=== PATIENT | male | born 1950 | race Caucasian/White ===

== ENCOUNTER 2024-12-01 08:15 | Inpatient (IN) | payer MEDICARE, OTHER, SELFPAY ==
[2024-12-01] VITALS (9 sets, daily range): BP systolic 56–134; BP diastolic 38–75; PULSE 57–83; RESP 14–19; TEMP 36.3–36.6; O2SAT 95–100; BMI 25.7
[2024-12-01] MEDS: SODIUM CHLORIDE 0.9% 1000 ML 1,000 ML 999 ML IV (08:35)
--- NOTE | 2024-12-01 08:40 | EKG_ITS ---
[facility] (Formerly [facility]) Test Date: 2024-12-01 Pat Name: MARIANGEL MONTEMAYOR Department: Room: - Gender: Male Assistant Laboratory Director: : 1950 Requested By: Sherwin Owens Order Number: [id number] Reading MD: Sherwin Owens Measurements Intervals Hanna Rate: 62 P: 45 LA: 185 QRS: 53 QRSD: 93 T: 55 QT: 462 QTc: 472 Interpretive Statements SINUS RHYTHM PROLONGED QT INTERVAL Compared to ECG 04/07/2023 12:26:17 Prolonged QT interval now present /store/S0/[id number].pdf
--- NOTE | 2024-12-01 08:40 | XR_ITS ---
Examination: CT abdomen and pelvis without contrast. Coronal 3-D reconstructions. Sagittal 2-D reconstructions. Date and time of exam:December 01, [address] chest abdomen pelvis April 07, 2023 INDICATIONS: Generalized abdominal pain today CTDI: vol (mGy): 14.1 DLP: (mGycm): 805 Technique: Axial images of the abdomen have been obtained, 3 mm slice thickness Intravenous contrast material has not been administered. Low dose protocols were performed. One or more of the following dose reduction techniques were used; automated exposure control, adjustment of the mA and/or KV according to patient size, use of iterative reconstruction technique. Findings: Elevation left hemidiaphragm Retrocardiac gastric hernia No focal liver or splenic lesions Absent gallbladder No pancreatic mass Abdominal aorta normal size No renal or ureteral calculi, no hydronephrosis Air distended colon No pericecal inflammatory change Minimally fluid distended small bowel loops No bowel obstruction No diverticulitis Intact urinary bladder Transverse prostate dimension 35 mm Prominent osteopenia Moderate bilateral hip osteoarthritis IMPRESSION: No renal or ureteral calculi, no hydronephrosis Moderate colonic ileus Negative for bowel obstruction No diverticulitis Gallbladder is not diagnostically visualized, clinical correlation advised, consider hepatobiliary sonography follow-up
--- NOTE | 2024-12-01 08:41 | PD.EDRME ---
Rapid Medical Screening Exam RME Arrival date/time: 12/01/24 08:15 73-year-old male with a history of hypertension, intellectual disability, epilepsy, presents to the emergency room with a chief complaint of increased weakness, abdominal pain, nausea, vomiting, and a ground-level fall that occurred yesterday. I have greeted and performed a focused initial assessment of this patient. A comprehensive ED assessment and evaluation of the patient, analysis of all test results, and completion of the medical decision making process will be conducted by additional ED providers. Chief Complaint: Fall Time Seen by Provider: 12/01/24 08:19 Vital signs: Vital Signs Temperature 97.6 F 12/01/24 08:30 Pulse Rate 66 12/01/24 08:30 Respiratory Rate 17 12/01/24 08:30 Blood Pressure 68/48 L 12/01/24 08:30 Pulse Oximetry (%) 100 12/01/24 08:30 Oxygen Delivery Method Room Air 12/01/24 08:30 Vital signs reviewed by provider: Yes
[2024-12-01 09:12] LABS: Basophils # (Auto) 0.0 Thou/mm3 (0.0-0.2); Basophils % (Auto) 0 % (0-2.5); Eosinophils # (Auto) 0.0 Thou/mm3 (0.0-0.5); Eosinophils % (Auto) 0 % (0-10); Hematocrit 37.7 % (41.0-53.0); Hemoglobin 13.5 g/dL (13.5-16.0); Immature Granulocytes Auto 0.07 Thou/mm3 (0.00-0.00); Lymphocytes # (Auto) 0.9 Thou/mm3 (1.0-4.8); Lymphocytes % (Auto) 6 % (10-50); Mean Corpuscular HGB Conc 35.8 g/dl (31.0-37.0); Mean Corpuscular Hemoglobin 31.9 pg (25.0-35.0); Mean Corpuscular Volume 89 fL (80-100); Monocytes # (Auto) 0.8 Thou/mm3 (0.0-0.8); Monocytes % (Auto) 5 % (0-12); Neutrophils # (Auto) 13.4 Thou/mm3 (1.8-7.7); Neutrophils % (Auto) 88 % (37-80); Nucleated Red Blood Cell # 0.00 Thou/mm3 (0.00-0.00); Nucleated Red Blood Cell % 0 /100 WBC (0); Platelet Count 170 Thou/mm3 (140-440); RDW Standard Deviation 41.1 fL (35.1-43.9); Red Blood Count 4.23 Miln/mm3 (4.50-5.90); White Blood Count 15.2 Thou/mm3 (3.8-10.6)
--- NOTE | 2024-12-01 09:14 | XR_ITS ---
Examination: AP chest single view Technique one AP portable semiupright chest single view Date and time: December 01, 2024 0959 hours Comparison June 24, 2022 INDICATIONS: Hypotension nausea vomiting beginning 3 days ago. FINDINGS: Normal heart size Moderate elevation left hemidiaphragm Minor subsegmental atelectasis left base. No pneumonia or pulmonary edema Prominent osteopenia IMPRESSION: No pneumonia or pulmonary edema
[2024-12-01 09:30] LABS: INR 1.1 (0.9-1.3); Partial Thromboplastin Time 24.5 Seconds (22.0-36.0); Prothrombin Time 12.2 Seconds (9.0-12.2)
[2024-12-01 09:34] LABS: Lactate (Lactic Acid) 2.0 mMol/L (0.4-2.0)
[2024-12-01 09:38] LABS: Alanine Aminotransferase 255 U/L (10-49); Albumin, Serum 4.2 gm/dL (3.4-4.8); Albumin/Globulin Ratio 1.8 (1.2-2.2); Alkaline Phosphatase 83 U/L (46-116); Anion Gap 9 (7-16); BUN/Creatinine Ratio 14 Ratio (12-20); Bilirubin,Total 1.0 mg/dL (0.3-1.2); Blood Urea Nitrogen 23 mg/dL (9-23); Calcium 8.7 mg/dL (8.3-10.6); Calcium (Corrected) 8.7 mg/dL (8.5-10.1); Carbon Dioxide 26.7 mMol/L (20.0-31.0); Chloride 90 mMol/L (98-107); Creatinine (Component) 1.6 mg/dL (0.6-1.3); Estimated Creatinine Clearance 34.9 mL/min (>60); Globulin 2.4 gm/dL (2.3-3.5); Glucose 133 mg/dL (74-106); Lipase 44 U/L (12-53); Magnesium 2.0 mg/dL (1.6-2.6); Osmolality,Calculated 259 (275-295); Potassium 3.8 mMol/L (3.4-5.1); Sodium 126 mMol/L (136-145); Total Protein 6.6 gm/dL (5.7-8.2); Troponin I 0.026 ng/mL (0.0-0.045); eGFR 45 See Note
[2024-12-01 09:55] LABS: Aspartate Amino Transferase 1067 U/L (0-34)
--- NOTE | 2024-12-01 10:09 | PD.EDWEAK ---
ED Weakness RME/HPI General Chief complaint: Fall Stated complaint: Fall yesterday, lower back pain,poss UTI Time Seen by Provider: 12/01/24 08:19 Arrival date/time: 12/01/24 08:15 RME / HPI RME / HPI Narrative: 12/01/24 08:15 73-year-old male with a history of hypertension, intellectual disability, epilepsy, presents to the emergency room with a chief complaint of increased weakness, abdominal pain, nausea, vomiting, and a ground-level fall that occurred yesterday. I have greeted and performed a focused initial assessment of this patient. A comprehensive ED assessment and evaluation of the patient, analysis of all test results, and completion of the medical decision making process will be conducted by additional ED providers. DR. KING MAIN ED EVALUATION 73 year old male with history of intellectual disability, seizures, hypertension, hyperlipidemia presents to the ED for evaluation of weakness today. Sister reports at baseline the patient is able to walk without assistance and mostly independent in ADLs. However, noted beginning yesterday the patient is globally weak and unable to walk without assistance of walker. States yesterday, patient had a fall and was found lying supine on the floor. Believes patient had remained on on the floor for several hours. Sister additionally reports patient has had nausea, vomiting, diarrhea, night sweats, and urinary urgency. Sister denies fevers, cough, nasal congestion, or sick contacts. Sister mentioned patient was previously on 10mg Lisinopril and was decreased to 5mg daily. Baseline blood pressure 110s. Patient took medication this morning. Related Data Home Medications ?Medication ?Instructions ?Recorded ?Confirmed ergocalciferol (vitamin D2) 1,250 50,000 unit PO QDAY 09/28/23 12/01/24 mcg (50,000 unit) capsule ezetimibe 10 mg tablet 10 mg PO QDAY 09/28/23 12/01/24 phenobarbital 64.8 mg tablet 64.8 mg PO QDAY 09/28/23 12/01/24 lamotrigine 200 mg tablet 200 mg PO Q12H 12/01/24 12/01/24 lisinopril 5 mg tablet 5 mg PO QDAY 12/01/24 12/01/24 tamsulosin 0.4 mg capsule 0.4 mg PO QDAY 12/01/24 12/01/24 Previous Rx's ?Medication ?Instructions ?Recorded acetaminophen 325 mg tablet 650 mg (2 x 325 mg) PO Q6H PRN 06/24/22 (Tylenol) fever or pain #20 tabs Held on 09/28/23. Instructions: Resume on 09/29/23. may resume in 24hours Allergies Allergy/AdvReac Type Severity Reaction Status Date / Time No Known Allergies Allergy Verified 12/01/24 08:23 Review of Systems Review of Systems Systems Reviewed: All systems reviewed, normal except as documented Past Medical History Past Medical History NEUROLOGIC: Positive Neurological Disorders (INTELLECTUAL DISORDER), Seizures (last known seizure 10 years ago) and Epilepsy CARDIAC: Positive Cardiac Disorders, Hypercholesterolemia and Hypertension GASTROINTESTINAL: Positive Gastrointestinal Disorders (dysphagia) and Ulcer (bleeding ulcer) MUSCULOSKELETAL: Positive Arthritis Social History SMOKING STATUS: Never smoker ED Exam Narrative Physical exam: Constitutional: Awake, alert, nontoxic, elderly, frail HEENT: NC, AT, EOMI Neck: Supple CV: RRR, no m/r/g Lungs: CTAB, no w/r/r, no respiratory distress. Abd: Soft, NT, NT, no HSM noted to palpation Back: Appears well, no bruising noted, no swelling, no point tenderness, there is mild generalized tenderness to the entire back Extremities: No deformities, no edema noted; dull rubor to anterior aspect of knees with superficial abrasions Neuro: AAOx3, CN 2-12 GIBL, no acute neuro deficit noted. Skin: Warm, dry, intact Course Course Course Narrative: 1133h: Patient's labs reviewed, has significant abnormalities including white count of 15.2, AST 1067, ALT 255, sodium 126, creatinine 1.6, CPK 19,754. Given report from family that patient was found on the floor for possibly hours, concern for rhabdomyolysis. Was somewhat hypotensive on arrival with improvement with IV fluids. Will continue IV fluids, will discuss with hospitalist for admission. 1140h: Case was discussed with hospitalist team A. They will be down to evaluate patient for admission. Quality Measures none Orders Category Date Time Status Bedside COVID-19 Antigen Test NOW Care 12/01/24 08:40 Active Bedside Influenza A&B Antigen Test NOW Care 12/01/24 08:40 Completed COVID-19 Screening Questionnaire NOW Care 12/01/24 11:42 Active Decision to Admit X1 Care 12/01/24 11:42 Completed EKG (ED ONLY) *Do not use* NOW Care 12/01/24 08:[address] abdomen pelvis wo con Stat Exams 12/01/24 08:40 Completed EKG (ED Only) Stat Exams 12/01/24 08:40 Draft XR chest 1V portable Stat Exams 12/01/24 09:14 Completed B-Type Natriuretic Peptide Stat Lab 12/01/24 09:00 Completed CBC Stat Lab 12/01/24 09:00 Completed Comprehensive Metabolic Panel Stat Lab 12/01/24 09:00 Completed Creatine Kinase Stat Lab 12/01/24 09:28 Completed Lactate (Lactic Acid) Stat Lab 12/01/24 09:28 Completed Lipase Stat Lab 12/01/24 09:00 Completed Magnesium Stat Lab 12/01/24 09:00 Completed Partial Thromboplastin Time Stat Lab 12/01/24 09:00 Completed Prothrombin Time with INR Stat Lab 12/01/24 09:00 Completed Troponin I Stat Lab 12/01/24 09:00 Completed Urinalysis Stat Lab 12/01/24 13:50 Completed Acetaminophen Tab [Tylenol Tab] Med 12/01/24 11:38 Discontinued 975 mg PO X1 ONE Sodium Chloride 0.9% 1000 ml [Ns] 1,000 ml Med 12/01/24 11:39 Discontinued IV 500 mls/hr Sodium Chloride 0.9% 1000 ml [Ns] 1,000 ml Med 12/01/24 09:15 Discontinued IV 999 mls/hr Vital Signs Vital signs: Vital Signs Temperature 97.6 F 12/01/24 08:30 Pulse Rate 66 12/01/24 08:30 Respiratory Rate 17 12/01/24 08:30 Blood Pressure 68/48 L 12/01/24 08:30 Pulse Oximetry (%) 100 12/01/24 08:30 Oxygen Delivery Method Room Air 12/01/24 08:30 Pulse ox is 100% on room air which is adequate. Weakness MDM Narrative MDM Narrative:: Luciana Arora am scribing for and in the presence of Dr. King. Patient data External records reviewed:: [facility] previous records (I reviewed ED visit on 04/07/2023 ) Clinical information provided by:: family (sister provided history ) Social determinants that could affect healthcare access:: none Patient has the following chronic illnesses:: hypertension, hyperlipidemia, seizures, intellectual disability How is presenting disease/condition affected by chronic disease/condition?: exacerbated by Evaluation data The following diagnostics were reviewed and interpreted by me:: lab results, radiology exam(s) and EKG tracing(s) (12/01/2024 @ 09:04 AM. Sinus rhythm, rate 62, no STEMI. ) Lab and/or radiology exams considered but not ordered:: None Interpretation Summary: Ordering Physician: Sherwin James Date of Service: 12/01/24 Procedure(s): CT abdomen pelvis wo con Accession Number(s): [id number] cc: Sherwin JamesP; Kathi Jackson; Stephan Mcdonald MD~ Examination: CT abdomen and pelvis without contrast. Coronal 3-D reconstructions. Sagittal 2-D reconstructions. Date and time of exam:December 01, [address] chest abdomen pelvis April 07, 2023 INDICATIONS: Generalized abdominal pain today CTDI: vol (mGy): 14.1 DLP: (mGycm): 805 Technique: Axial images of the abdomen have been obtained, 3 mm slice thickness Intravenous contrast material has not been administered. Low dose protocols were performed. One or more of the following dose reduction techniques were used; automated exposure control, adjustment of the mA and/or KV according to patient size, use of iterative reconstruction technique. Findings: Elevation left hemidiaphragm Retrocardiac gastric hernia No focal liver or splenic lesions Absent gallbladder No pancreatic mass Abdominal aorta normal size No renal or ureteral calculi, no hydronephrosis Air distended colon No pericecal inflammatory change Minimally fluid distended small bowel loops No bowel obstruction No diverticulitis Intact urinary bladder Transverse prostate dimension 35 mm Prominent osteopenia Moderate bilateral hip osteoarthritis IMPRESSION: No renal or ureteral calculi, no hydronephrosis Moderate colonic ileus Negative for bowel obstruction No diverticulitis Gallbladder is not diagnostically visualized, clinical correlation advised, consider hepatobiliary sonography follow-up Dictated By: Stephan Mcdonald MD Signed By: <Electronically signed by Stephan Mcdonald MD in OV> 12/01/24 1129 Ordering Physician: Patty King MD Date of Service: 12/01/24 Procedure(s): XR chest 1V portable Accession Number(s): [id number] cc: Kathi Jackson MAJOR GIFTS MANAGER; Stephan Mcdonald MD; Patty King MD~ Examination: AP chest single view Technique one AP portable semiupright chest single view Date and time: December 01, 2024 0959 hours Comparison June 24, 2022 INDICATIONS: Hypotension nausea vomiting beginning 3 days ago. FINDINGS: Normal heart size Moderate elevation left hemidiaphragm Minor subsegmental atelectasis left base. No pneumonia or pulmonary edema Prominent osteopenia IMPRESSION: No pneumonia or pulmonary edema Dictated By: Stephan Mcdonald MD Signed By: <Electronically signed by Stephan Mcdonald MD in OV> 12/01/24 1028 Medications / Prescriptions Medications or Prescriptions considered but not ordered:: None Medication administrations:: Medication Administration History Acetaminophen (Acetaminophen 325 Mg Tablet) 650 mg PO Q6H PRN PRN Reason: Fever >100.4 Stop: 12/31/24 13:36 Acetaminophen (Acetaminophen 325 Mg Tablet) 650 mg PO Q6H PRN PRN Reason: PAIN SCALE 1-3 (mild Stop: 12/31/24 13:37 Heparin Sodium (Porcine) (Heparin Sod Inj 5000 Unit/Ml Vial) 5,000 unit SC Q8HR MONIKA Stop: 12/15/24 13:59 Last Admin: 12/01/24 15:12 Dose: 5,000 unit Documented By: DB Co-signed By: LF Sodium Chloride (Ns) 1,000 mls @ 200 mls/hr IV .Q5H MONIKA Stop: 12/31/24 15:30 Lamotrigine (Lamotrigine 100 Mg Tablet) 300 mg PO BID MONIKA Stop: 12/31/24 20:59 Lamotrigine (Lamotrigine 100 Mg Tablet) 200 mg PO WLUNCH MONIKA Stop: 01/01/25 11:59 Phenobarbital (Phenobarbital 32.4 Mg Tablet) 64.8 mg PO HS MONIKA Stop: 12/15/24 20:59 Discontinued Medications Acetaminophen (Acetaminophen 325 Mg Tablet) 975 mg PO X1 ONE Stop: 12/01/24 11:39 Last Admin: 12/01/24 13:01 Dose: 975 mg Documented By: AURORA Sodium Chloride (Ns) 1,000 mls @ 999 mls/hr IV .Q1H1M ONE Stop: 12/01/24 10:15 Last Infusion: 12/01/24 09:40 Dose: Infused Documented By: Admin: 12/01/24 08:35 Dose: 999 mls/hr Documented By: AURORA Sodium Chloride (Ns) 1,000 mls @ 500 mls/hr IV .Q2H ONE Stop: 12/01/24 13:38 Last Infusion: 12/01/24 15:16 Dose: Infused Documented By: Admin: 12/01/24 13:01 Dose: 500 mls/hr Documented By: AURORA Ondansetron HCl (Ondansetron Inj 2 Mg/Ml Inj 2 Ml) 4 mg IVP Q6H PRN; Protocol PRN Reason: NAUSEA OR VOMITING Stop: 12/31/24 13:36 See above Consultations Consultation(s) initiated? (list below): No Diagnosis Weakness Differential Diagnosis: anemia, hypoglycemia, hypothyroidism, rhabdomyolysis, sepsis and dehydration Most likely diagnosis given after review of the tests above:: rhabdomyolysis elevated LFTs fall hyponatremia Admission Indicated Admission indicated?: indicated Admission Request Was there a request for admission?: Yes Admission Attestation Admission request attestation: Discussed case with [] from Hospitalist service regarding admission. Discussed patients ED course, exam findings, labs, and radiology results. The Hospitalist [agrees,declines] to accept the patient for admission. Disposition Plan Disposition Plan: Admit Discharge Plan Plan Patient Disposition: Admit Acute Care w/in Hospital Problem List Clinical Impression: Rhabdomyolysis, Elevated LFTs, Fall, Hyponatremia
[2024-12-01 10:35] LABS: Creatine Kinase 19754 U/L (34-171)
[2024-12-01 11:06] LABS: B-Type Natriuretic Peptide < 20 pg/mL (0-100)
[2024-12-01] MEDS: SODIUM CHLORIDE 0.9% 1000 ML 1,000 ML 500 ML IV (13:01)
[2024-12-01] MEDS: ACETAMINOPHEN 325 MG TABLET 975 MG PO (13:01)
[2024-12-01 13:52] LABS: Collection Type, Urine Clean Catch
[2024-12-01 13:59] LABS: Bilirubin,Urine Negative (Negative); Blood,Urine 3+ (Negative); Clarity,Urine Turbid (Clear/Hazy); Glucose, Urine Negative (Negative); Ketones,Urine Negative (Negative); Leukocyte Esterase,Urine Negative (Negative); Nitrite,Urine Negative (Negative); PH,Urine 6.0 (5.0-7.0); Protein,Urine 2+ (Neg - Trace); RBC,Urine 1 /hpf (0-3); Specific Gravity,Urine 1.013 (1.001-1.035); Squamous Epithelial Cell,Urine < 1 /hpf (0-5); Urobilinogen,Urine Negative mg/dL (0.0-1.0); WBC,Urine 5 /hpf (0-5)
[2024-12-01 14:22] LABS: Color,Urine Orange (Lt Yel-Yel)
--- NOTE | 2024-12-01 14:31 | ESHP_ITS ---
<Statement entered by Al Griggs MD - 12/01/24 20:42> Patient was examined and case was reviewed with team including attending physician. Note reviewed, I agree with most of its contents and agree with the patient's care as documented by Dr. Beckett 73 yo M with PMHx of hypertension, epilepsy and intellectual disability who presented to the ED due to increased weakness, abdominal pain, nausea, vomiting. Patient had a ground level fall the day prior and was on the ground for long hours that day. Patient denies any loss of conciousness and he states he remembers the whole event, denies any head or facial trauma. He was too weak to get up from the floor and decided to take a nap while waiting for help. In the ED patient was found to have CK >61279 and was admitted for management for rhabdomyolysis. Patient was started on IVFs. Patient did endorse that he has been struggling to go to the restroom and he felt he was unable to empty his bladder, cassidy catheter placed as patient was found to have > 1000ml of urine in his bladder. Will continue with IV hydration and trend CK levels at this time Al Griggs MD PGY-2 Documentation for date of: 12/01/24 HPI History of Present Illness History of present illness: Kevan Whipple (Brad) is a 73 y/o male with PMH of epilepsy (on phenobarb and lamotrigine), intellectual disability (2/2 oxygen deprivation at ), and hypertension who presented to the ED 12/01 for weakness and fall. For the past few days patient noticed that he was not feeling well, had subjective fevers, malaise, myalgias, diarrhea. Denies melena, hematochezia. He had a mechanical fall one day ago after tripping over his dog, no prodrome, no LOC, + head strike. His sister found him after the fall, does not know how long he was on the ground but may have been several hours. He has lived with his sister for the past 13 years, but he does not have a conservatorship or designated medical decision maker. He is able to perform ADLs and has help with IADLs at baseline. Last seizure (grand mal) over 13 years ago ED course: Afebrile, HR 50s to 60s, systolic BP 50s to 100, diastolic 30s to 70s, appropriate SpO2 on room air. Leukocytosis with neutrophilic predominance and left shift. Hyponatremia 126, hypochloremia 90, creatinine 1.6, transaminitis with AST 1067, ALT 255. CK1 9754. Troponin negative, BNP WNL. UA negative for UTI, 2+ protein, 3+ blood, RBC WNL. CT A/P W/O showed moderate colonic ileus. Gallbladder not diagnostically visualized. Otherwise unremarkable. EKG showed NSR, HR 62, QTc 472. CXR unremarkable. Given 2 L NS, Tylenol in the ED. PMHx: Hypertension, epilepsy, intellectual disability (2/2 oxygen deprivation at ) Allergies: NKDA Home meds: Lisinopril 5 mg daily Phenobarbital 64.8 nightly Tamsulosin 0.4 mg daily Vitamin D 50,000 IU once weekly Lamotrigine 300 mg BID +200 mg with lunch Ezetimibe 10 mg daily SgHx: Cholecystectomy (2019), left arm fracture repair, strabismus correction surgery SHx: Lives with his sister for the past 13 years. Able to perform ADLs. Denies smoking, alcohol, recreational drug use FHx: Mom - colon cancer at age 85 Dad ? [place] s/p CABG at 70, stroke at age 80 Review of Systems Review of Systems Narrative Review of Systems: 14 point ROS negative other than HPI Exam Vital Signs Temp Pulse Resp BP Pulse Ox O2 Del Method 97.9 F 58 L 14 100/75 99 Room Air 12/01/24 12:46 12/01/24 12:46 12/01/24 12:46 12/01/24 12:46 12/01/24 12:46 12/01/24 12:46 Narrative Exam General: No acute distress, well nourished Eye: PERRL, EOMI, normal conjunctiva, no scleral icterus HENT: Normocephalic, atraumatic, difficulty with hearing (wears hearing aid), m oist oral mucosa Neck: Supple, non-tender, no JVD, no lymphadenopathy Lungs: Clear to auscultation bilaterally, non-labored respirations, symmetric chest rise, no use of accessory muscles Heart: Normal S1 and S2, no S3 or S4 appreciated. Normal rate and regular rhythm, no murmurs, rubs gallops, or edema. Peripheral pulses intact bilaterally, capillary refill brisk distally Abdomen: Soft, non-tender, non-distended, normal bowel sounds. No guarding or rebound tenderness. Musculoskeletal: Normal range of motion and strength, no tenderness or swelling Skin: Skin is warm, dry, no rashes. Scrape to right church, no active bleeding, clean and dry Neurologic: Alert, awake and oriented x3. CN II-XII grossly intact. 5/5 strength upper and lower extremities. No focal neuro deficits. No signs of meningeal irritation noted. Psychiatric: Cooperative, appropriate mood and affect Results: Labs 12/02/24 05:53 12/02/24 05:53 Labs: Short CBC 12/01/24 Range/Units 09:00 WBC 15.2 H (3.8-10.6) Thou/mm3 Hgb 13.5 (13.5-16.0) g/dL Hct 37.7 L (41.0-53.0) % Plt Count 170 (140-440) Thou/mm3 BMP 12/01/24 09:00 Sodium 126 L Potassium 3.8 Chloride 90 L Carbon Dioxide 26.7 BUN 23 Creatinine 1.6 H Glucose 133 H Calcium 8.7 Cardiac Enzymes 12/01/24 12/01/24 Range/Units 09:00 09:28 Total Creatine Kinase 21761 H (34-171) U/L Troponin I 0.026 (0.0-0.045) ng/mL Liver Function 12/01/24 Range/Units 09:00 Total Bilirubin 1.0 (0.3-1.2) mg/dL AST 1067 H* (0-34) U/L ALT 255 H (10-49) U/L Alkaline Phosphatase 83 (46-116) U/L Albumin 4.2 (3.4-4.8) gm/dL Urine 12/01/24 Range/Units 13:50 Urine Color [place] A (Lt Yel-Yel) Urine Clarity Turbid A (Clear/Hazy) Urine pH 6.0 (5.0-7.0) Ur Specific [place] 1.013 (1.001-1.035) Urine Protein 2+ A (Neg - Trace) Urine Glucose (UA) Negative (Negative) Quality Measures Quality Measures none Advance care planning discussed with:: patient and sibling Medications Home Medications and Allergies Home Medications ?Medication ?Instructions ?Recorded ?Confirmed ?Type ergocalciferol (vitamin D2) 1,250 50,000 unit PO QWEEK 09/28/23 12/02/24 History mcg (50,000 unit) capsule ezetimibe 10 mg tablet 10 mg PO QDAY 09/28/2312/01 History phenobarbital 64.8 mg tablet 64.8 mg PO QDAY 09/28/23 12/01/24 History lamotrigine 200 mg tablet 200 mg PO Q12H 12/01/2411/21 History lisinopril 5 mg tablet 5 mg PO QDAY 12/01/24 History tamsulosin 0.4 mg capsule 0.4 mg PO QDAY 12/01/2411/21 History Allergies Allergy/AdvReac Type Severity Reaction Status Date / Time No Known Allergies Allergy Verified 12/01/24 08:23 Visit Medications Acetaminophen (Acetaminophen 325 Mg Tablet) 650 mg PO Q6H PRN PRN Reason: Fever >100.4 Stop: 12/31/24 13:36 Acetaminophen (Acetaminophen 325 Mg Tablet) 650 mg PO Q6H PRN PRN Reason: PAIN SCALE 1-3 (mild Stop: 12/31/24 13:37 Heparin Sodium (Porcine) (Heparin Sod Inj 5000 Unit/Ml Vial) 5,000 unit SC Q8HR MONIKA Stop: 12/15/24 13:59 Ondansetron HCl (Ondansetron Inj 2 Mg/Ml Inj 2 Ml) 4 mg IVP Q6H PRN; Protocol PRN Reason: NAUSEA OR VOMITING Stop: 12/31/24 13:36 Discontinued Medications Acetaminophen (Acetaminophen 325 Mg Tablet) 975 mg PO X1 ONE Stop: 12/01/24 11:39 Last Admin: 12/01/24 13:01 Dose: 975 mg Sodium Chloride (Ns) 1,000 mls @ 999 mls/hr IV .Q1H1M ONE Stop: 12/01/24 10:15 Last Infusion: 12/01/24 09:40 Dose: Infused Sodium Chloride (Ns) 1,000 mls @ 500 mls/hr IV .Q2H ONE Stop: 12/01/24 13:38 Last Admin: 12/01/24 13:01 Dose: 500 mls/hr Assessment & Plan Plan Mr. Mathur Sarabjit is a 73 y/o male with PMH of epilepsy (on phenobarb and lamotrigine), intellectual disability (2/2 oxygen deprivation at ), and hypertension who presented to the ED 12/01 for weakness and fall. Admitted for rhabdomyolysis management. #Rhabdomyolysis Had a mechanical fall 1 day ago, possibly down for several hours Reports generalized muscle weakness and fatigue CK: 9754 UA 2+ protein, 3+ blood, RBC 1 Received 2 L NS in ED Plan: - Continue NS 200 mL/h - Trend CK q6h #Leukocytosis Neutrophilic predominance with left shift UA negative for infection, though patient reports burning with micturition DDX: Rhabdomyolysis, UTI Plan: - Pending urine Cx, blood Cx - CTM vitals, CBC #Transaminitis Most likely secondary to acute hepatic injury i/s/o rhabdomyolysis AST 1067, ALT 255 Plan: - CTM with daily CMP - Pending liver US #Hyponatremia Asymptomatic Plan: - CTM with CMP, clinical sx #Hypokalemia #Hypocalcemia Asymptomatic i/s/o rhabdomyolysis + IV fluid resuscitation Plan: - Replete as needed #Epilepsy Last seizure > 13 years ago Plan: - Continue home phenobarbital 64.8 QHS - Continue home lamotrigine 300 mg twice daily + 200 mg with lunch #Hypertension Home med: Lisinopril 5 mg daily Plan: - Hold lisinopril 2/2 soft BP #BPH Home med: Tamsulosin 0.4 mg daily Plan: - Hold tamsulosin 2/2 soft BP Checklist Dispo: IVF for rhabdo Diet: Regular Bowel Reg: None VTE ppx: Heparin 5000 units subQ every 8 hours GI ppx: None Pain mgmt: Tylenol Code status: Full Plan discussed with Dr. Lucas and Dr. Jammie Beckett MD PGY1 Attending Provider Attestation/Addendum I, Kristen Agudelo DO, attest that I was physically present for the cross portions of the service and evaluated the patient with the resident and I reviewed and discussed the case with the resident and agree with the resident's findings and plans of care as documented above Patient is a 73-year-old male with past medical history of epilepsy, intellectual disability, hypertension who was brought to the ED after he sustained a fall at home. Patient denies any loss of consciousness or dizziness. However, sister at bedside states that the patient has been noted to be having gradually worsening weakness for the past few days and has been stumbling. He did not complain of anything at the time, but noted to be more weak and requiring a walker to ambulate. He was also noted to be more winded after a couple steps doing his daily activities. He denies any fevers or chills otherwise. However, patient sustained a mechanical fall yesterday resulting in hitting his head on the door frame yesterday. He does have a little ecchymosis over his right cheek. Patient is able to move all 4 extremities without any pain elicited. Patient noted to have a CK of 19,754 on presentation. Patient reports some myalgias otherwise. Sister states that she had found the patient on the floor since he was not able to get up after falling and had soiled himself. He was due to see his PCP this morning which she brought him to the appointment only to find out that his provider was not working. She subsequently brought her to the ED. He is noted to have elevated LFTs likely secondary to the rhabdomyolysis. He has no right upper quadrant pain at this time. Will start patient on aggressive IV fluid hydration and trend CK. No evidence of infection. Patient did state that he has some dysuria. However, UA was bland. Will monitor LFTs closely.
[2024-12-01] MEDS: HEPARIN SOD INJ 5000 UNIT/ML VIAL SC ×2 (15:12→22:21)
[2024-12-01 15:53] LABS: Anion Gap 7 (7-16); BUN/Creatinine Ratio 14 Ratio (12-20); Blood Urea Nitrogen 20 mg/dL (9-23); Calcium 7.4 mg/dL (8.3-10.6); Carbon Dioxide 26.0 mMol/L (20.0-31.0); Chloride 98 mMol/L (98-107); Creatinine (Component) 1.4 mg/dL (0.6-1.3); Estimated Creatinine Clearance 39.9 mL/min (>60); Glucose 108 mg/dL (74-106); Osmolality,Calculated 266 (275-295); Potassium 3.1 mMol/L (3.4-5.1); Sodium 131 mMol/L (136-145); eGFR 53 See Note
--- NOTE | 2024-12-01 16:03 | XR_ITS ---
Examination: Abdomen sonogram, Limited Date and time of exam: December 01, 2024 1648 hours INDICATIONS: Elevated liver function test on laboratory examination today. Technique: Real-time quezada scale transabdominal sonographic images of the upper abdomen obtained. Findings: Absent gallbladder. Normal common bile duct 0.4 cm. Pancreatic head 2.7 cm. Liver 14.7 cm, no liver lesions Normal hepatopedal portal venous flow Patent IVC IMPRESSION: Liver normal size and no focal liver lesions No biliary tract dilatation
[2024-12-01] MEDS: SODIUM CHLORIDE 0.9% 1000 ML 1,000 ML 200 ML IV ×2 (16:31→22:22)
--- NOTE | 2024-12-01 17:53 | PC.CC ---
[id number] completed a face to face initial with the pts sister who was at bedside. Pt was asleep upon arrival to the room. Pts sister is Haley Swann [phone] whom which the pt resides with and she is his designated healthcare educator. Haley reports the pt is intellectually disabled, deaf and has epilepsy. Haley reports she has been taking care of the pt all his life. Haley reports she would like the pt go be d/c to a SNF when he is ready for d/c, so he can gain strength back. Haley reports that typcially the pt ambulates on his own and is very independent. However, since as of late, the pt has been using a cane to get around due to being in pain. Haley reports the pt does not use any other DME. Haley reports the pt is able to groom and bathe on his own. Pt does not use O2 at home nor does he see a speciality medical provider. Haley reports that the pt is his own decision maker and can sign for himself, but if there comes a time that he cannot, Haley will be his decision maker. Pts PCP is Dr. Rosalino Walden, pharmacy of choice is [email or web address] but for emergency purposes he uses [facility]. Pt is a Full code, and does not have a POLST for Advance Directive on file. D/c plan: Home vs. SNF Surrogate Decision Maker: Haley Swann [phone] DME: pt uses a cane to ambulate Next of Kin: Haley Swann [phone]
[2024-12-01] MEDS: CALCIUM ACETATE 667 MG TABLET PO (18:35)
[2024-12-01] MEDS: ACETAMINOPHEN 325 MG TABLET 650 MG PO (20:32)
[2024-12-01 23:59] LABS: Anion Gap 6 (7-16); BUN/Creatinine Ratio 13 Ratio (12-20); Blood Urea Nitrogen 17 mg/dL (9-23); Calcium 7.9 mg/dL (8.3-10.6); Carbon Dioxide 27.7 mMol/L (20.0-31.0); Chloride 99 mMol/L (98-107); Creatinine (Component) 1.3 mg/dL (0.6-1.3); Estimated Creatinine Clearance 43.0 mL/min (>60); Glucose 110 mg/dL (74-106); Magnesium 2.2 mg/dL (1.6-2.6); Osmolality,Calculated 268 (275-295); Potassium 3.5 mMol/L (3.4-5.1); Sodium 133 mMol/L (136-145); eGFR 58 See Note
[2024-12-02] VITALS (7 sets, daily range): BP systolic 107–134; BP diastolic 64–81; PULSE 69–88; RESP 16–18; TEMP 36.1–36.9; O2SAT 93–100; BMI 11.0
[2024-12-02] MEDS: SODIUM CHLORIDE 0.9% 1000 ML 1,000 ML 200 ML IV ×3 (05:38→22:25)
[2024-12-02] MEDS: HEPARIN SOD INJ 5000 UNIT/ML VIAL SC ×3 (05:41→21:16)
[2024-12-02 06:19] LABS: Basophils # (Auto) 0.0 Thou/mm3 (0.0-0.2); Basophils % (Auto) 0 % (0-2.5); Eosinophils # (Auto) 0.0 Thou/mm3 (0.0-0.5); Eosinophils % (Auto) 0 % (0-10); Hematocrit 34.1 % (41.0-53.0); Hemoglobin 11.8 g/dL (13.5-16.0); Immature Granulocytes Auto 0.04 Thou/mm3 (0.00-0.00); Lymphocytes # (Auto) 0.9 Thou/mm3 (1.0-4.8); Lymphocytes % (Auto) 9 % (10-50); Mean Corpuscular HGB Conc 34.6 g/dl (31.0-37.0); Mean Corpuscular Hemoglobin 31.8 pg (25.0-35.0); Mean Corpuscular Volume 92 fL (80-100); Monocytes # (Auto) 0.6 Thou/mm3 (0.0-0.8); Monocytes % (Auto) 6 % (0-12); Neutrophils # (Auto) 8.6 Thou/mm3 (1.8-7.7); Neutrophils % (Auto) 84 % (37-80); Nucleated Red Blood Cell # 0.00 Thou/mm3 (0.00-0.00); Nucleated Red Blood Cell % 0 /100 WBC (0); Platelet Count 149 Thou/mm3 (140-440); RDW Standard Deviation 43.3 fL (35.1-43.9); Red Blood Count 3.71 Miln/mm3 (4.50-5.90); White Blood Count 10.2 Thou/mm3 (3.8-10.6)
[2024-12-02 06:56] LABS: Alanine Aminotransferase 189 U/L (10-49); Albumin, Serum 3.3 gm/dL (3.4-4.8); Albumin/Globulin Ratio 1.6 (1.2-2.2); Alkaline Phosphatase 66 U/L (46-116); Anion Gap 10 (7-16); Aspartate Amino Transferase 595 U/L (0-34); BUN/Creatinine Ratio 11 Ratio (12-20); Bilirubin,Total 0.5 mg/dL (0.3-1.2); Blood Urea Nitrogen 13 mg/dL (9-23); Calcium 8.2 mg/dL (8.3-10.6); Calcium (Corrected) 8.8 mg/dL (8.5-10.1); Carbon Dioxide 25.0 mMol/L (20.0-31.0); Chloride 99 mMol/L (98-107); Creatinine (Component) 1.2 mg/dL (0.6-1.3); Estimated Creatinine Clearance 46.6 mL/min (>60); Globulin 2.1 gm/dL (2.3-3.5); Glucose 99 mg/dL (74-106); Magnesium 1.8 mg/dL (1.6-2.6); Osmolality,Calculated 268 (275-295); Phosphorous 2.3 mg/dL (2.4-5.1); Potassium 3.7 mMol/L (3.4-5.1); Sodium 134 mMol/L (136-145); Total Protein 5.4 gm/dL (5.7-8.2); eGFR > 60 See Note
[2024-12-02 07:07] LABS: Creatine Kinase 7523 U/L (34-171)
--- NOTE | 2024-12-02 07:40 | ESPR_ITS ---
<Statement entered by Al Griggs MD - 12/02/24 11:29> Patient was examined and case was reviewed with team including attending physician. Note reviewed, I agree with most of its contents and agree with the patient's care as documented by Dr. Beckett Patient seen today at the bedside found awake, alert No overnight events reported. Vital signs stable at this time. Rhabdomyolysis continues to improve after aggressive IV hydration. He does endorse some right sided back pain and lidocaine patch was provided, additionally XR were ordered of lumbar spine and hips as patient had a fall prior to coming to our institution, patient currently able to move all 4 extremities without a problem. Al Griggs MD PGY-2 Documentation for date of: 12/02/24 Subjective Subjective Interval history: NAEO. VSS. Hyponatremia improving, CK improving (7523), LFTs and Cr improving. Leukocytosis resolved. Liver US unremarkable. Absent gallbladder. Pending blood cx, urine cx. Will reassess today if patient should be restarted on home BP meds. Patient evaluated at bedside. Reports right sided back pain that was worsened when he transferred from the ED to upstairs. Denies diarrhea, N/V, headache. Ordered XR L spine, R hip, R shoulder, Lidocaine patch, PT. Exam Vital Signs Temp Pulse Resp BP Pulse Ox O2 Del Method 97.9 F 86 18 134/81 H 96 Room Air 12/02/24 04:00 12/02/24 04:00 12/02/24 04:00 12/02/24 04:00 12/02/24 04:00 12/02/24 04:00 Narrative Exam General: No acute distress, well nourished Eye: PERRL, EOMI, normal conjunctiva, no scleral icterus HENT: Normocephalic, atraumatic, difficulty with hearing (wears hearing aid), m oist oral mucosa Neck: Supple, non-tender, no JVD, no lymphadenopathy Lungs: Clear to auscultation bilaterally, non-labored respirations, symmetric chest rise, no use of accessory muscles Heart: Normal S1 and S2, no S3 or S4 appreciated. Normal rate and regular rhythm, no murmurs, rubs gallops, or edema. Peripheral pulses intact bilaterally, capillary refill brisk distally Abdomen: Soft, non-tender, non-distended, normal bowel sounds. No guarding or rebound tenderness. Musculoskeletal: Normal range of motion and strength, TTP right shoulder, hip, and low back Skin: Skin is warm, dry, no rashes. Scrape to right roman catholic, no active bleeding, clean and dry Neurologic: Alert, awake and oriented x3. CN II-XII grossly intact. 5/5 strength upper and lower extremities. No focal neuro deficits. No signs of meningeal irritation noted. Psychiatric: Cooperative, appropriate mood and affect Objective Labs 12/02/24 05:53 12/02/24 05:53 Labs: Laboratory Results - last 24 hr 12/01/24 12/01/24 12/01/24 09:00 09:28 13:50 WBC 15.2 H RBC 4.23 L Hgb 13.5 Hct 37.7 L MCV 89 MCH 31.9 MCHC 35.8 RDW Std Deviation 41.1 Plt Count 170 Neut % (Auto) 88 H Lymph % (Auto) 6 L Esmeralda % (Auto) 5 Eos % (Auto) 0 Baso % (Auto) 0 Neut # (Auto) 13.4 H Lymph # (Auto) 0.9 L Esmeralda # (Auto) 0.8 Eos # (Auto) 0.0 Baso # (Auto) 0.0 Immature Gran # (Auto) 0.07 H Absolute Nucleated RBC 0.00 Immature Gran % 1 H Nucleated RBC % 0 PT 12.2 INR 1.1 APTT 24.5 Sodium 126 L Potassium 3.8 Chloride 90 L Carbon Dioxide 26.7 Anion Gap 9 BUN 23 Creatinine 1.6 H Estim Creat Clear Calc 34.9 L eGFR 45 L BUN/Creatinine Ratio 14 Glucose 133 H Calculated Osmolality 259 L Lactic Acid 2.0 Calcium 8.7 Corrected Calcium 8.7 Phosphorus Magnesium 2.0 Total Bilirubin 1.0 AST 1067 H* ALT 255 H Alkaline Phosphatase 83 Total Creatine Kinase 88016 H Troponin I 0.026 B-Natriuretic Peptide < 20 Total Protein 6.6 Albumin 4.2 Globulin 2.4 Albumin/Globulin Ratio 1.8 Lipase 44 Ur Collection Type Clean Catch Urine Color [place] A Urine Clarity Turbid A Urine pH 6.0 Ur Specific [place] 1.013 Urine Protein 2+ A Urine Glucose (UA) Negative Urine Ketones Negative Urine Blood 3+ A Urine Nitrite Negative Urine Bilirubin Negative Urine Urobilinogen (Auto) Negative Ur Leukocyte Esterase Negative Urine RBC 1 Urine WBC 5 Ur Squamous Epith Cells < 1 Urine Bacteria None 12/01/24 12/01/24 12/02/24 15:17 23:06 05:53 WBC 10.2 D RBC 3.71 L Hgb 11.8 L Hct 34.1 L MCV 92 MCH 31.8 MCHC 34.6 RDW Std Deviation 43.3 Plt Count 149 Neut % (Auto) 84 H Lymph % (Auto) 9 L Esmeralda % (Auto) 6 Eos % (Auto) 0 Baso % (Auto) 0 Neut # (Auto) 8.6 H Lymph # (Auto) 0.9 L Esmeralda # (Auto) 0.6 Eos # (Auto) 0.0 Baso # (Auto) 0.0 Immature Gran # (Auto) 0.04 H Absolute Nucleated RBC 0.00 Immature Gran % 0 Nucleated RBC % 0 PT INR APTT Sodium 131 L 133 L 134 L Potassium 3.1 L D 3.5 3.7 Chloride 98 99 99 Carbon Dioxide 26.0 27.7 25.0 Anion Gap 7 6 L 10 BUN 20 17 13 Creatinine 1.4 H 1.3 1.2 Estim Creat Clear Calc 39.9 L 43.0 L 46.6 L eGFR 53 L 58 L > 60 BUN/Creatinine Ratio 14 13 11 L Glucose 108 H 110 H 99 Calculated Osmolality 266 L 268 L 268 L Lactic Acid Calcium 7.4 L 7.9 L 8.2 L Corrected Calcium 8.8 Phosphorus 2.3 L Magnesium 2.2 1.8 Total Bilirubin 0.5 D AST 595 H* ALT 189 H Alkaline Phosphatase 66 D Total Creatine Kinase 7523 H D Troponin I B-Natriuretic Peptide Total Protein 5.4 L Albumin 3.3 L D Globulin 2.1 L Albumin/Globulin Ratio 1.6 Lipase Ur Collection Type Urine Color Urine Clarity Urine pH Ur Specific [place] Urine Protein Urine Glucose (UA) Urine Ketones Urine Blood Urine Nitrite Urine Bilirubin Urine Urobilinogen (Auto) Ur Leukocyte Esterase Urine RBC Urine WBC Ur Squamous Epith Cells Urine Bacteria Quality Measures Quality Measures none Advance care planning discussed with:: patient Assessment & Plan Assessment Current Active Medications: Generic Name Dose Route Start Last Admin Trade Name Freq PRN Reason Stop Dose Admin Acetaminophen 650 mg 12/01/24 13:37 Acetaminophen 325 Mg Tablet PO 12/31/24 13:36 Q6H PRN Fever >100.4 Acetaminophen 650 mg 12/01/24 13:38 12/01/24 20:32 Acetaminophen 325 Mg Tablet PO 12/31/24 13:37 650 mg Q6H PRN Administration PAIN SCALE 1-3 (mild Heparin Sodium (Porcine) 5,000 unit 12/01/24 14:00 12/02/24 05:41 Heparin Sod Inj 5000 Unit/Ml Vial SC 12/15/24 13:59 5,000 unit Q8HR MONIKA Administration Sodium Chloride 1,000 mls @ 200 mls/hr 12/01/24 15:31 12/02/24 05:38 Ns IV 12/31/24 15:30 200 mls/hr .Q5H MONIKA Administration Lamotrigine 300 mg 12/01/24 21:00 12/01/24 21:53 Lamotrigine 100 Mg Tablet PO 12/31/24 20:59 300 mg BID MONIKA Administration Lamotrigine 200 mg 12/02/24 12:00 Lamotrigine 100 Mg Tablet PO 01/01/25 11:59 WLUNCH MONIKA Phenobarbital 64.8 mg 12/01/24 21:00 12/01/24 20:32 Phenobarbital 32.4 Mg Tablet PO 12/15/24 20:59 64.8 mg HS MONIKA Administration Plan Mr. Mathur (Cliff Whipple is a 73 y/o male with PMH of epilepsy (on phenobarb and lamotrigine), intellectual disability (2/2 oxygen deprivation at ), and hypertension who presented to the ED 12/01 for weakness and fall. Admitted for rhabdomyolysis management. #Rhabdomyolysis #Ground level fall #Back pain Had a mechanical fall 1 day ago, possibly down for several hours Reports generalized muscle weakness and fatigue CK: 9754 UA 2+ protein, 3+ blood, RBC 1 Received 2 L NS in ED Plan: - Continue NS 200 mL/h - Trend CK q6h - Daily CMP, Mg, Phos to check electrolytes, Cr - Pending XR L spine, R hip, R shoulder - Ibuprofen PRN, Lidocaine patch x1 #Leukocytosis - resolved Recent N/V/diarrhea, malaise, fatigue x several days prior to admission Neutrophilic predominance with left shift UA negative for infection, though patient reports burning with micturition, bladder scan showed urinary retention, cassidy placed DDX: Rhabdomyolysis, UTI Plan: - Pending urine Cx, blood Cx - Cassidy catheter in place - CTM vitals, CBC #Transaminitis - improving Most likely secondary to acute hepatic injury i/s/o rhabdomyolysis AST 1067, ALT 255 Liver US unremarkable. Absent gallbladder. Plan: - CTM with daily CMP #Hyponatremia - improving Asymptomatic Plan: - CTM with CMP, clinical sx #Hypokalemia #Hypocalcemia Asymptomatic i/s/o rhabdomyolysis + IV fluid resuscitation Plan: - Replete as needed #Normocytic anemia Plan: - CTM with daily CBC #Epilepsy Last seizure > 13 years ago Plan: - Continue home phenobarbital 64.8 QHS - Continue home lamotrigine 300 mg twice daily + 200 mg with lunch #Hypertension Home med: Lisinopril 5 mg daily Plan: - Hold lisinopril 2/2 soft BP #BPH Home med: Tamsulosin 0.4 mg daily Plan: - Hold tamsulosin 2/2 soft BP Checklist Dispo: IVF for rhabdo Diet: Regular Bowel Reg: None VTE ppx: Heparin 5000 units subQ every 8 hours GI ppx: None Pain mgmt: Ibuprofen PRN, lidocaine patch Code status: Full Plan discussed with Dr. Lucas and Dr. Jammie Beckett MD PGY1 Attending Provider Attestation/Addendum I, Kristen Agudelo DO, attest that I was physically present for the cross portions of the service and evaluated the patient with the resident and I reviewed and discussed the case with the resident and agree with the resident's findings and plans of care as documented above Patient seen and evaluated this AM. Patient reports pain in his right scapular region and right paraspinal lumbar region, tender to palpation. Patient otherwise shows no focal neurological deficit. CK downtrending. Will continue with IV fluid hydration. Patient will need PT eval due to progressive weakness and frequent falls at home. LFTs otherwise downtrending and renal function improved
[2024-12-02] MEDS: CALCIUM ACETATE 667 MG TABLET PO ×2 (08:10→19:16)
[2024-12-02] MEDS: NAPH,KPH MBDB 1 PACKET (1.5 GM) PO (08:10)
[2024-12-02] MEDS: ACETAMINOPHEN 325 MG TABLET 650 MG PO (10:09)
[2024-12-02 10:15] LABS: Creatine Kinase 6370 U/L (34-171)
--- NOTE | 2024-12-02 10:37 | CHAP ---
Patient was visited by a Spiritual Care Volunteer on 12/02/2024 between 0900 and 0945 and received comfort, encouragement and/or prayer.
--- NOTE | 2024-12-02 10:41 | XR_ITS ---
Examination: Lumbar spine AP single view Technique one AP lumbar spine single view Date and time: December 02, 2024 2510 hours INDICATIONS: Low back pain today. FINDINGS: Fusion of the lumbar vertebral bodies, ankylosing spondylitis pattern Prominent osteopenia Moderate to advanced bilateral hip osteoarthritis IMPRESSION: Ankylosing spondylitis pattern
--- NOTE | 2024-12-02 10:41 | XR_ITS ---
Examination: Right shoulder single view TECHNIQUE: AP internal rotation right shoulder single view Date and time: December 02, 2024 1107 hours INDICATIONS: Patient fell today with injury to the shoulder, shoulder pain. FINDINGS: Prominent osteopenia Significant narrowing glenohumeral joint No acute shoulder fracture or dislocation IMPRESSION: No acute shoulder fracture or dislocation
--- NOTE | 2024-12-02 10:41 | XR_ITS ---
Examination: Right hip single view TECHNIQUE: AP right hip single view Date and time: December 02, 2024 11:12 AM INDICATIONS: Patient fell today with injury to the hip, hip pain. FINDINGS: Limited study No acute hip fracture No hip dislocation Moderate to advanced narrowing hip joint IMPRESSION: No acute hip fracture. If pain persists, recommend AP pelvis follow-up
--- NOTE | 2024-12-02 11:35 | PC.SS ---
SS spoke to patient's sister, Haley in regards to discharge plan. Haley reports that she would like PT to evaluate patient, if patient is able to ambulate on his own then patient is able to discharge home. Haley agreeable to have SS still go forward with submitting for SNF and if discharge plan changes then S could present SNF choices. SS submitted SNF referral for patient through [email or web address] platform. PASSR completed.
[2024-12-02] MEDS: LIDOCAINE 5% 1 PATCH TOP (11:59)
[2024-12-02] MEDS: IBUPROFEN TAB 400 MG TABLET PO ×2 (14:31→21:16)
[2024-12-02 16:47] LABS: Alanine Aminotransferase 171 U/L (10-49); Albumin, Serum 3.2 gm/dL (3.4-4.8); Albumin/Globulin Ratio 1.7 (1.2-2.2); Alkaline Phosphatase 64 U/L (46-116); Anion Gap 6 (7-16); Aspartate Amino Transferase 500 U/L (0-34); BUN/Creatinine Ratio 13 Ratio (12-20); Bilirubin,Total 0.4 mg/dL (0.3-1.2); Blood Urea Nitrogen 13 mg/dL (9-23); Calcium 7.9 mg/dL (8.3-10.6); Calcium (Corrected) 8.5 mg/dL (8.5-10.1); Carbon Dioxide 27.1 mMol/L (20.0-31.0); Chloride 99 mMol/L (98-107); Creatine Kinase 5765 U/L (34-171); Creatinine (Component) 1.0 mg/dL (0.6-1.3); Estimated Creatinine Clearance 55.9 mL/min (>60); Globulin 1.9 gm/dL (2.3-3.5); Glucose 113 mg/dL (74-106); Osmolality,Calculated 265 (275-295); Potassium 3.2 mMol/L (3.4-5.1); Sodium 132 mMol/L (136-145); Total Protein 5.1 gm/dL (5.7-8.2); eGFR > 60 See Note
[2024-12-03] VITALS (8 sets, daily range): BP systolic 109–143; BP diastolic 66–95; PULSE 62–83; RESP 17–19; TEMP 36.2–36.6; O2SAT 95–98; BMI 13.0
[2024-12-03] MEDS: SODIUM CHLORIDE 0.9% 1000 ML 1,000 ML 200 ML IV ×3 (03:39→20:44)
[2024-12-03] MEDS: IBUPROFEN TAB 400 MG TABLET PO ×2 (03:41→09:54)
[2024-12-03] MEDS: HEPARIN SOD INJ 5000 UNIT/ML VIAL SC ×3 (05:12→21:16)
[2024-12-03 06:36] LABS: Basophils # (Auto) 0.1 Thou/mm3 (0.0-0.2); Basophils % (Auto) 1 % (0-2.5); Eosinophils # (Auto) 0.1 Thou/mm3 (0.0-0.5); Eosinophils % (Auto) 2 % (0-10); Hematocrit 30.1 % (41.0-53.0); Hemoglobin 10.3 g/dL (13.5-16.0); Immature Granulocytes Auto 0.02 Thou/mm3 (0.00-0.00); Lymphocytes # (Auto) 1.1 Thou/mm3 (1.0-4.8); Lymphocytes % (Auto) 16 % (10-50); Mean Corpuscular HGB Conc 34.2 g/dl (31.0-37.0); Mean Corpuscular Hemoglobin 31.9 pg (25.0-35.0); Mean Corpuscular Volume 93 fL (80-100); Monocytes # (Auto) 0.5 Thou/mm3 (0.0-0.8); Monocytes % (Auto) 7 % (0-12); Neutrophils # (Auto) 5.1 Thou/mm3 (1.8-7.7); Neutrophils % (Auto) 74 % (37-80); Nucleated Red Blood Cell # 0.00 Thou/mm3 (0.00-0.00); Nucleated Red Blood Cell % 0 /100 WBC (0); Platelet Count 143 Thou/mm3 (140-440); RDW Standard Deviation 44.1 fL (35.1-43.9); Red Blood Count 3.23 Miln/mm3 (4.50-5.90); White Blood Count 6.9 Thou/mm3 (3.8-10.6)
[2024-12-03 07:01] LABS: Alanine Aminotransferase 162 U/L (10-49); Albumin, Serum 3.3 gm/dL (3.4-4.8); Albumin/Globulin Ratio 1.7 (1.2-2.2); Alkaline Phosphatase 58 U/L (46-116); Anion Gap 9 (7-16); Aspartate Amino Transferase 418 U/L (0-34); BUN/Creatinine Ratio 9 Ratio (12-20); Bilirubin,Total 0.4 mg/dL (0.3-1.2); Blood Urea Nitrogen 8 mg/dL (9-23); Calcium 8.5 mg/dL (8.3-10.6); Calcium (Corrected) 9.1 mg/dL (8.5-10.1); Carbon Dioxide 25.3 mMol/L (20.0-31.0); Chloride 100 mMol/L (98-107); Creatinine (Component) 0.9 mg/dL (0.6-1.3); Estimated Creatinine Clearance 62.1 mL/min (>60); Globulin 1.9 gm/dL (2.3-3.5); Glucose 87 mg/dL (74-106); Magnesium 2.1 mg/dL (1.6-2.6); Osmolality,Calculated 265 (275-295); Phosphorous 1.5 mg/dL (2.4-5.1); Potassium 3.9 mMol/L (3.4-5.1); Sodium 134 mMol/L (136-145); Total Protein 5.2 gm/dL (5.7-8.2); eGFR > 60 See Note
[2024-12-03 07:16] LABS: Creatine Kinase 4106 U/L (34-171)
--- NOTE | 2024-12-03 10:29 | PD.RESPRO ---
Documentation for date of: 12/03/24 Exam Vital Signs Temp Pulse Resp BP Pulse Ox O2 Del Method 97.1 F 66 19 143/95 H 98 Room Air 12/03/24 04:00 12/03/24 04:00 12/03/24 04:00 12/03/24 04:00 12/03/24 04:00 12/03/24 04:00 Narrative Exam General: No acute distress, well nourished Eye: PERRL, EOMI, normal conjunctiva, no scleral icterus HENT: Normocephalic, atraumatic, difficulty with hearing (wears hearing aid), moist oral mucosa Neck: Supple, non-tender, no JVD, no lymphadenopathy Lungs: Clear to auscultation bilaterally, non-labored respirations, symmetric chest rise, no use of accessory muscles Heart: Normal S1 and S2, no S3 or S4 appreciated. Normal rate and regular rhythm, no murmurs, rubs gallops, or edema. Peripheral pulses intact bilaterally, capillary refill brisk distally Abdomen: Soft, non-tender, non-distended, normal bowel sounds. No guarding or rebound tenderness. Musculoskeletal: Normal range of motion and strength, TTP right shoulder, hip, and low back Skin: Skin is warm, dry, no rashes. Scrape to right faith, no active bleeding, clean and dry Neurologic: Alert, awake and oriented x3. CN II-XII grossly intact. 5/5 strength upper and lower extremities. No focal neuro deficits. No signs of meningeal irritation noted. Psychiatric: Cooperative, appropriate mood and affect Objective Labs 12/03/24 05:06 12/03/24 05:06 Labs: Laboratory Results - last 24 hr 12/02/24 12/03/24 15:40 05:06 WBC 6.9 RBC 3.23 L Hgb 10.3 L Hct 30.1 L MCV 93 MCH 31.9 MCHC 34.2 RDW Std Deviation 44.1 H Plt Count 143 Neut % (Auto) 74 Lymph % (Auto) 16 [place] % (Auto) 7 Eos % (Auto) 2 Baso % (Auto) 1 Neut # (Auto) 5.1 Lymph # (Auto) 1.1 [place] # (Auto) 0.5 Eos # (Auto) 0.1 Baso # (Auto) 0.1 Immature Gran # (Auto) 0.02 H Absolute Nucleated RBC 0.00 Immature Gran % 0 Nucleated RBC % 0 Sodium 132 L 134 L Potassium 3.2 L D 3.9 D Chloride 99 100 Carbon Dioxide 27.1 25.3 Anion Gap 6 L 9 BUN 13 8 L Creatinine 1.0 0.9 Estim Creat Clear Calc 55.9 L 62.1 eGFR > 60 > 60 BUN/Creatinine Ratio 13 9 L Glucose 113 H 87 Calculated Osmolality 265 L 265 L Calcium 7.9 L 8.5 Corrected Calcium 8.5 9.1 Phosphorus 1.5 L Magnesium 2.1 Total Bilirubin 0.4 0.4 AST 500 H 418 H ALT 171 H 162 H Alkaline Phosphatase 64 58 Total Creatine Kinase 5765 H D 4106 H D Total Protein 5.1 L 5.2 L Albumin 3.2 L 3.3 L Globulin 1.9 L 1.9 L Albumin/Globulin Ratio 1.7 1.7 Quality Measures Quality Measures none Assessment & Plan Assessment Current Active Medications: Generic Name Dose Route Start Last Admin Trade Name Freq PRN Reason Stop Dose Admin Heparin Sodium (Porcine) 5,000 unit 12/01/24 14:00 12/03/24 05:12 Heparin Sod Inj 5000 Unit/Ml Vial SC 12/15/24 13:59 5,000 unit Q8HR MONIKA Administration Sodium Chloride 1,000 mls @ 200 mls/hr 12/01/24 15:31 12/03/24 09:54 Ns IV 12/31/24 15:30 200 mls/hr .Q5H MONIKA Administration Ibuprofen 400 mg 12/02/24 10:41 12/03/24 09:54 Ibuprofen Tab 400 Mg Tablet PO 01/01/25 10:40 400 mg Q6HR PRN Administration Pain Or Fever > 100.4 Lamotrigine 300 mg 12/01/24 21:00 12/03/24 08:16 Lamotrigine 100 Mg Tablet PO 12/31/24 20:59 300 mg BID MONIKA Administration Lamotrigine 200 mg 12/02/24 12:00 12/02/24 12:00 Lamotrigine 100 Mg Tablet PO 01/01/25 11:59 200 mg WLUNCH MONIKA Administration Phenobarbital 64.8 mg 12/01/24 21:00 12/02/24 20:19 Phenobarbital 32.4 Mg Tablet PO 12/15/24 20:59 64.8 mg HS MONIKA Administration Plan Mr. Kevan Whipple (Brad) is a 73 y/o male with PMH of epilepsy (on phenobarb and lamotrigine), intellectual disability (2/2 oxygen deprivation at ), and hypertension who presented to the ED 12/01 for weakness and fall. Admitted for rhabdomyolysis management. #Rhabdomyolysis #Ground level fall #Back pain Had a mechanical fall 1 day ago, possibly down for several hours Reports generalized muscle weakness and fatigue CK: 9754 UA 2+ protein, 3+ blood, RBC 1 Received 2 L NS in ED Plan: - Continue NS 200 mL/h - Trend CK q6h - Daily CMP, Mg, Phos to check electrolytes, Cr - Pending XR L spine, R hip, R shoulder - Ibuprofen PRN, Lidocaine patch x1 #Leukocytosis - resolved Recent N/V/diarrhea, malaise, fatigue x several days prior to admission Neutrophilic predominance with left shift UA negative for infection, though patient reports burning with micturition, bladder scan showed urinary retention, cassidy placed DDX: Rhabdomyolysis, UTI Plan: - Pending urine Cx, blood Cx - Cassidy catheter in place - CTM vitals, CBC #Transaminitis - improving Most likely secondary to acute hepatic injury i/s/o rhabdomyolysis AST 1067, ALT 255 Liver US unremarkable. Absent gallbladder. Plan: - CTM with daily CMP #Hyponatremia - improving Asymptomatic Plan: - CTM with CMP, clinical sx #Hypokalemia #Hypocalcemia Asymptomatic i/s/o rhabdomyolysis + IV fluid resuscitation Plan: - Replete as needed #Normocytic anemia Plan: - CTM with daily CBC #Epilepsy Last seizure > 13 years ago Plan: - Continue home phenobarbital 64.8 QHS - Continue home lamotrigine 300 mg twice daily + 200 mg with lunch #Hypertension Home med: Lisinopril 5 mg daily Plan: - Hold lisinopril 2/2 soft BP #BPH Home med: Tamsulosin 0.4 mg daily Plan: - Hold tamsulosin 2/2 soft BP Checklist Dispo: IVF for rhabdo Diet: Regular Bowel Reg: None VTE ppx: Heparin 5000 units subQ every 8 hours GI ppx: None Pain mgmt: Ibuprofen PRN, lidocaine patch Code status: Full Plan discussed with Dr. Lucas and Dr. Lucero Beckett MD PGY1
--- NOTE | 2024-12-03 11:01 | ESDS_ITS ---
<Statement entered by Al Griggs MD - 12/03/24 17:56> Patient was examined and case was reviewed with team including attending physician. Note reviewed, I agree with most of its contents and agree with the patient's care. Al Griggs MD PGY-2 Planned Discharge Date 12/03/24 DS: Providers Provider Date of admission: 12/01/24 12:14 Primary care physician: TERE Hoskins Admitting Provider: Kristen Agudelo DO Attending Provider on Admission: Kristen Agudelo DO Consults: 12/02/24 10:43 Referral Physical Therapy Routine Comment: Physician Instructions: Attending Provider on DC: Dr. Barker Discharging Provider: Isabel Beckett, DS: Diagnosis Problem List Completed Was Problem List Reviewed/Reconciled?: Yes Hospital Course Hospital Course Hospital course: Hospital Course Mr. Whipple is a 73-year-old male with past medical history of epilepsy (on phenobarb and lamotrigine), intellectual disability (2/2 oxygen deprivation at ), and hypertension who presented to the ED 12/01 for weakness and fall. Prior to coming to the hospital he noticed several days of subjective fevers, malaise, myalgias, diarrhea, and imbalance. He had a mechanical fall 1 day prior to coming to the ED, was too weak to get up on his own, was on the ground for at least several hours. In the ED labs were significant for rhabdomyolysis with CK1 9754, transaminitis, hyponatremia 126, DAR. Patient was given normal saline IV fluid resuscitation with close monitoring of electrolytes, liver and kidney functions. Restarted on home lamotrigine and phenobarb, held tamsulosin and lisinopril for soft BP. After 2 days of rehydration patient's CK and LFTs down trended, DAR resolved. Patient did not had any episodes of diarrhea while hospitalized, remained afebrile without leukocytosis. Patient continued to have lower back, right hip, right shoulder pain most likely secondary to the fall and subsequent rhabdomyolysis. X-rays of L-spine, right hip, right shoulder did not show any fractures, significant for ankylosing spondylitis pattern. Pain improved with ibuprofen and lidocaine patch. PT recommended short-term SNF, patient and patient's sister were amenable to this, will discharge to SNF. Patient stable and medically cleared for discharge. Diagnoses #Rhabdomyolysis #Leukocytosis - resolved #Transaminitis - improving #Epilepsy #Hypertension #BPH Discharge Instructions Follow up with primary care physician within 1 week of discahrge please take your medications as prescribed Ask your PCP for a referall to rheumatology for your ankylosing spondilitis. Should your symptoms recur or worsen patient is instructed to return to the ED. Isabel Beckett MD PGY1 Time Spent with Patient Time attestation: Total time spent providing and/or coordinating discharge services: Time spent: Greater than 30 minutes Exam Vital Signs Temp Pulse Resp BP Pulse Ox O2 Del Method 97.3 F 76 17 136/81 H 97 Room Air 12/03/24 08:00 12/03/24 10:55 12/03/24 08:00 12/03/24 08:00 12/03/24 08:00 12/03/24 08:00 Narrative Exam General: No acute distress, well nourished Eye: PERRL, EOMI, normal conjunctiva, no scleral icterus HENT: Normocephalic, atraumatic, difficulty with hearing (wears hearing aid), moist oral mucosa Neck: Supple, non-tender, no JVD, no lymphadenopathy Lungs: Clear to auscultation bilaterally, non-labored respirations, symmetric chest rise, no use of accessory muscles Heart: Normal S1 and S2, no S3 or S4 appreciated. Normal rate and regular rhythm, no murmurs, rubs gallops, or edema. Peripheral pulses intact bilaterally, capillary refill brisk distally Abdomen: Soft, non-tender, non-distended, normal bowel sounds. No guarding or rebound tenderness. Musculoskeletal: Normal range of motion and strength, TTP right shoulder, hip, and low back Skin: Skin is warm, dry, no rashes. Scrape to right episcopal, no active bleeding, clean and dry Neurologic: Alert, awake and oriented x3. CN II-XII grossly intact. 5/5 strength upper and lower extremities. No focal neuro deficits. No signs of meningeal irritation noted. Psychiatric: Cooperative, appropriate mood and affect Discharge Plan Plan Patient Disposition: Xfer Skilled Nsg Fac (SNF) Care Plan Goals: Follow up with primary care physician within 1 week of discahrge please take your medications as prescribed Ask your PCP for a referall to rheumatology for your ankylosing spondilitis. Should your symptoms recur or worsen patient is instructed to return to the ED. Prescriptions/Referrals Prescriptions/Med Rec: Continued phenobarbital 64.8 mg tablet 64.8 mg PO QDAY Patient Comments: take 2 tablets by mouth at bedtime ergocalciferol (vitamin D2) 1,250 mcg (50,000 unit) capsule 50,000 unit PO QWEEK ezetimibe 10 mg tablet 10 mg PO QDAY tamsulosin 0.4 mg capsule 0.4 mg PO QDAY lamotrigine 200 mg tablet 200 mg PO Q12H Patient Comments: TAKE ONE AND ON-HALF TABLETS IN THE MORNING, 1 TABLET AT NOON AND ONE AND - HALF AT BEDTIME lisinopril 5 mg tablet 5 mg PO QDAY Referrals: Kathi Jackson FNP [Primary Care Provider] - Patient/Caregiver Discharge Instructions Print Language: Kenyan Stand Alone Forms: Tracy Award Info., Patient Portal Info Letter Discharge Order Discharge Orders: Discharge (Routine); Ordered 12/03/24 Ordered By: Al Griggs Quality Discharge Quality Measures VTE prophylaxis MD Attestestation MD Attestation I have examined the patient, reviewed labs and imaging findings, discussed the case with the resident(s), and reviewed entered orders. I agree with the plan of care as outlined in this note, with these additional summaries/recommendations: Patient seen at bedside. No acute overnight events. Patient can continues to endorse generalized muscle pain secondary to rhabdo although improved. Patient is medically cleared for discharge today although pending SNF placement and health social work professor following. Please see residents note for additional details and management. Time Spent: [address] Lucero MD
[2024-12-03] MEDS: NAPH,KPH MBDB 1 PACKET (1.5 GM) PO (12:22)
[2024-12-03] MEDS: LIDOCAINE 5% 1 PATCH TOP (13:05)
--- NOTE | 2024-12-03 13:44 | PC.PT ---
Patient is safe to ambulate into the bathroom with a FWW and 1 staff assist. RN made aware.
--- NOTE | 2024-12-03 14:26 | PC.SS ---
SS follow up note; SS contacted patient's sister, Haley in regards to [facility]. Haley informed SS she would like patient to discharge to [facility]. Patient is medically cleared, however must meet 3 midnights, which will be tomorrow. [facility] informed SS [facility] are able to transport patient tomorrow. No further needs identified.
[2024-12-03] MEDS: TAMSULOSIN HCL 0.4 MG CAPSULE PO (14:57)
[2024-12-04] VITALS: BP 143/73; PULSE 82; RESP 30; TEMP 36.7; O2SAT 99
[2024-12-04] MEDS: SODIUM CHLORIDE 0.9% 1000 ML 1,000 ML 200 ML IV ×2 (01:48→05:45)
[2024-12-04 04:00] VITALS: BP 125/76; PULSE 76; RESP 18; TEMP 36.6; O2SAT 98
[2024-12-04] MEDS: HEPARIN SOD INJ 5000 UNIT/ML VIAL SC (05:41)
[2024-12-04 05:58] LABS: Basophils # (Auto) 0.0 Thou/mm3 (0.0-0.2); Basophils % (Auto) 1 % (0-2.5); Eosinophils # (Auto) 0.1 Thou/mm3 (0.0-0.5); Eosinophils % (Auto) 1 % (0-10); Hematocrit 28.1 % (41.0-53.0); Hemoglobin 9.8 g/dL (13.5-16.0); Immature Granulocytes Auto 0.02 Thou/mm3 (0.00-0.00); Lymphocytes # (Auto) 1.0 Thou/mm3 (1.0-4.8); Lymphocytes % (Auto) 17 % (10-50); Mean Corpuscular HGB Conc 34.9 g/dl (31.0-37.0); Mean Corpuscular Hemoglobin 31.9 pg (25.0-35.0); Mean Corpuscular Volume 92 fL (80-100); Monocytes # (Auto) 0.5 Thou/mm3 (0.0-0.8); Monocytes % (Auto) 8 % (0-12); Neutrophils # (Auto) 4.2 Thou/mm3 (1.8-7.7); Neutrophils % (Auto) 72 % (37-80); Nucleated Red Blood Cell # 0.00 Thou/mm3 (0.00-0.00); Nucleated Red Blood Cell % 0 /100 WBC (0); Platelet Count 150 Thou/mm3 (140-440); RDW Standard Deviation 42.6 fL (35.1-43.9); Red Blood Count 3.07 Miln/mm3 (4.50-5.90); White Blood Count 5.8 Thou/mm3 (3.8-10.6)
[2024-12-04 06:28] LABS: Alanine Aminotransferase 133 U/L (10-49); Albumin, Serum 3.1 gm/dL (3.4-4.8); Albumin/Globulin Ratio 1.8 (1.2-2.2); Alkaline Phosphatase 55 U/L (46-116); Anion Gap 7 (7-16); Aspartate Amino Transferase 277 U/L (0-34); BUN/Creatinine Ratio 9 Ratio (12-20); Bilirubin,Total 0.4 mg/dL (0.3-1.2); Blood Urea Nitrogen 6 mg/dL (9-23); Calcium 8.3 mg/dL (8.3-10.6); Calcium (Corrected) 9.0 mg/dL (8.5-10.1); Carbon Dioxide 27.9 mMol/L (20.0-31.0); Chloride 98 mMol/L (98-107); Creatinine (Component) 0.7 mg/dL (0.6-1.3); Estimated Creatinine Clearance 79.9 mL/min (>60); Globulin 1.7 gm/dL (2.3-3.5); Glucose 105 mg/dL (74-106); Magnesium 1.6 mg/dL (1.6-2.6); Osmolality,Calculated 263 (275-295); Phosphorous 1.7 mg/dL (2.4-5.1); Potassium 3.0 mMol/L (3.4-5.1); Sodium 133 mMol/L (136-145); Total Protein 4.8 gm/dL (5.7-8.2); eGFR > 60 See Note
--- NOTE | 2024-12-04 07:18 | ESDS_ITS ---
<Statement entered by Al Griggs MD - 12/04/24 09:03> Patient was examined and case was reviewed with team including attending physician. Note reviewed, I agree with most of its contents and agree with the patient's care. Al Griggs MD PGY-2 Planned Discharge Date 12/04/24 DS: Providers Provider Date of admission: 12/01/24 12:14 Primary care physician: TERE Hoskins Admitting Provider: Kristen Agudelo DO Attending Provider on Admission: Kristen Agudelo DO Consults: 12/02/24 10:43 Referral Physical Therapy Routine Comment: Physician Instructions: Attending Provider on DC: Dr. Barker Discharging Provider: Isabel Beckett, DS: Diagnosis Problem List Completed Was Problem List Reviewed/Reconciled?: Yes Hospital Course Hospital Course Hospital course: Hospital Course Mr. Whipple is a 73-year-old male with past medical history of epilepsy (on phenobarb and lamotrigine), intellectual disability (2/2 oxygen deprivation at ), and hypertension who presented to the ED 12/01 for weakness and fall. Prior to coming to the hospital he noticed several days of subjective fevers, malaise, myalgias, diarrhea, and imbalance. He had a mechanical fall 1 day prior to coming to the ED, was too weak to get up on his own, was on the ground for at least several hours. In the ED labs were significant for rhabdomyolysis with CK1 9754, transaminitis, hyponatremia 126, DAR. Patient was given normal saline IV fluid resuscitation with close monitoring of electrolytes, liver and kidney functions. Restarted on home lamotrigine and phenobarb, held tamsulosin and lisinopril for soft BP. After 2 days of rehydration patient's CK and LFTs down trended, DAR resolved. Patient did not had any episodes of diarrhea while hospitalized, remained afebrile without leukocytosis. Patient continued to have lower back, right hip, right shoulder pain most likely secondary to the fall and subsequent rhabdomyolysis. X-rays of L-spine, right hip, right shoulder did not show any fractures, significant for ankylosing spondylitis pattern. Pain improved with ibuprofen and lidocaine patch. PT recommended short-term SNF, patient and patient's sister were amenable to this, will discharge to SNF. Patient stable and medically cleared for discharge. Diagnoses #Rhabdomyolysis #Leukocytosis - resolved #Transaminitis - improving #Epilepsy #Hypertension #BPH Discharge Instructions Follow up with primary care physician within 1 week of discahrge please take your medications as prescribed Ask your PCP for a referall to rheumatology for your ankylosing spondilitis. Should your symptoms recur or worsen patient is instructed to return to the ED. Isabel Beckett MD PGY1 Time Spent with Patient Time attestation: Total time spent providing and/or coordinating discharge services: Time spent: Greater than 30 minutes Exam Vital Signs Temp Pulse Resp BP Pulse Ox O2 Del Method 97.9 F 76 18 125/76 98 Room Air 12/04/24 04:00 12/04/24 04:00 12/04/24 04:00 12/04/24 04:00 12/04/24 04:00 12/04/24 04:00 Narrative Exam General: No acute distress, well nourished Eye: PERRL, EOMI, normal conjunctiva, no scleral icterus HENT: Normocephalic, atraumatic, difficulty with hearing (wears hearing aid), moist oral mucosa Neck: Supple, non-tender, no JVD, no lymphadenopathy Lungs: Clear to auscultation bilaterally, non-labored respirations, symmetric chest rise, no use of accessory muscles Heart: Normal S1 and S2, no S3 or S4 appreciated. Normal rate and regular rhythm, no murmurs, rubs gallops, or edema. Peripheral pulses intact bilaterally, capillary refill brisk distally Abdomen: Soft, non-tender, non-distended, normal bowel sounds. No guarding or rebound tenderness. Musculoskeletal: Normal range of motion and strength, TTP right shoulder, hip, and low back Skin: Skin is warm, dry, no rashes. Scrape to right christianity, no active bleeding, clean and dry Neurologic: Alert, awake and oriented x3. CN II-XII grossly intact. 5/5 strength upper and lower extremities. No focal neuro deficits. No signs of meningeal irritation noted. Psychiatric: Cooperative, appropriate mood and affect Discharge Plan Plan Patient Disposition: Xfer Skilled Nsg Fac (SNF) Care Plan Goals: Follow up with primary care physician within 1 week of discahrge and get labs to evaluate electrolytes please take your medications as prescribed Ask your PCP for a referall to rheumatology for your ankylosing spondilitis. Should your symptoms recur or worsen patient is instructed to return to the ED. Prescriptions/Referrals Prescriptions/Med Rec: Continued phenobarbital 64.8 mg tablet 64.8 mg PO QDAY Patient Comments: take 2 tablets by mouth at bedtime ergocalciferol (vitamin D2) 1,250 mcg (50,000 unit) capsule 50,000 unit PO QWEEK ezetimibe 10 mg tablet 10 mg PO QDAY tamsulosin 0.4 mg capsule 0.4 mg PO QDAY lamotrigine 200 mg tablet 200 mg PO Q12H Patient Comments: TAKE ONE AND ON-HALF TABLETS IN THE MORNING, 1 TABLET AT NOON AND ONE AND - HALF AT BEDTIME lisinopril 5 mg tablet 5 mg PO QDAY Referrals: Kathi Jackson FNP [Primary Care Provider] - Patient/Caregiver Discharge Instructions Print Language: Taiwanese Stand Alone Forms: Tracy Award Info., Patient Portal Info Letter Discharge Order Discharge Orders: Discharge (Routine); Ordered 12/04/24 Ordered By: Al Griggs Quality Discharge Quality Measures VTE prophylaxis Attestestation MD Attestation I have examined the patient, reviewed labs and imaging findings, discussed the case with the resident(s), and reviewed entered orders. I agree with the plan of care as outlined in this note. Time Spent: [address] Lucero MD
[2024-12-04 08:00] VITALS: BP 128/61; PULSE 77; PULSE 81; RESP 20; TEMP 36.2; O2SAT 97
--- NOTE | 2024-12-04 08:56 | PC.NURSE ---
call to pharmacy, need more lamictal
[2024-12-04] MEDS: TAMSULOSIN HCL 0.4 MG CAPSULE PO (08:57)
[2024-12-04] MEDS: MAGNESIUM OXIDE 400 MG TABLET PO (08:57)
[2024-12-04] MEDS: NAPH,KPH MBDB 1 PACKET (1.5 GM) PO (08:57)
[2024-12-04 12:00] VITALS: BP 126/76; PULSE 76; RESP 18; TEMP 36.1; O2SAT 97
[2024-12-04 12:40] VITALS: PULSE 86
--- NOTE | 2024-12-04 13:00 | PC.SS ---
SS follow up note; SS contacted patient's sister, Haley again to remind her that [facility] was providing transportation at 3pm. SS also updated patient's nurse
--- NOTE | 2024-12-04 15:13 | PC.NURSE ---
sister zoila here at d/c, pt has hearing aids on, chargers are in bag that zoila is taking, glasses in plastic book box, zoila said she had taken his walker home from ED
== END 2024-12-04 15:07 | disposition skilled nursing facility (03) | DRG 558 ==
LOC: SERX 09:34 → SERHOLD 12:30 → S3SX 17:20
PROVIDERS: Nurse Practitioner Family; Admitting Provider Internal Medicine; Emergency Provider Family Medicine; PCP Registered Nurse Community Health; Visit Provider Internal Medicine
DX: M62.82 Rhabdomyolysis (principal); E87.1 Hypo-osmolality and hyponatremia; N17.9 Acute kidney failure, unspecified; I10 Essential (primary) hypertension; F79 Unspecified intellectual disabilities; G40.909 Epilepsy, unspecified, not intractable, without status epilepticus; E87.8 Other disorders of electrolyte and fluid balance, not elsewhere classified; R74.01 Elevation of levels of liver transaminase levels; D72.829 Elevated white blood cell count, unspecified; Z90.49 Acquired absence of other specified parts of digestive tract; E87.6 Hypokalemia; E83.51 Hypocalcemia; N40.1 Benign prostatic hyperplasia with lower urinary tract symptoms; R33.8 Other retention of urine; R30.0 Dysuria; D64.89 Other specified anemias; E78.5 Hyperlipidemia, unspecified; W22.09XA Striking against other stationary object, initial encounter; Y92.009 Unspecified place in unspecified non-institutional (private) residence as the place of occurrence of the external cause; Z79.899 Other long term (current) drug therapy; R29.6 Repeated falls
CPT/HCPCS: 36415; 71045; 72020; 73020; 73501; 74176; 76705; 80048; 80053; 81001; 82550; 83605; 83690; 83735; 83880; 84100; 84295; 84484; 85025; 85610; 85730; 87040; 87086; 87400; 87811; 93005; 93225; 96360; 96361; 97163; 99285; J1644; J3490; J7030; A9270